=== PATIENT | male | born 1985 | race African-American/Black ===

== ENCOUNTER 2017-12-23 15:25 | Emergency (ER) | payer MEDICARE, MEDICAID ==
[2017-12-23] MEDS ORDERED: OXYCODONE-ACETAMINOPHEN 5-325 MG TABLET PO ONE (16:31)
[2017-12-23] MEDS ORDERED: CEFTRIAXONE INJ 1000 MG VIAL IM ONE (17:03)
--- NOTE | 2017-12-23 17:12 | RADIOLOGY REPORT (SQ) ---
EXAM DESCRIPTION: FOOT LEFT COMPLETE COMPLETED DATE/TIME: 12/23/2017 4:54 pm REASON FOR STUDY: open wound, chronic callus, ? osteo COMPARISON: None. NUMBER OF VIEWS: Three views. TECHNIQUE: AP, lateral and oblique radiographic images acquired of the left foot. LIMITATIONS: None. FINDINGS: MINERALIZATION: Normal. BONES: No acute fracture or dislocation. No aggressive bony demineralization or periosteal new bone at the base of the 5th metatarsal worrisome for osteomyelitis JOINTS: No effusions. SOFT TISSUES: Plantar soft tissue ulcer along the base 5th left metatarsal. No radiopaque foreign ellen dy. OTHER: No other significant finding. IMPRESSION: Plantar ulcer next of the base 5th metatarsal without underlying bony abnormalities to s uggest active osteomyelitis TECHNICAL DOCUMENTATION: JOB ID: [id number] [employer]- All Rights Reserved Reading location - IP/workstation name: [email or web address]
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
[2017-12-23 17:28] LABS: APPEARANCE,URINE CLEAR; BILIRUBIN,URINE NEGATIVE (NEGATIVE); COLOR,URINE YELLOW; GLUCOSE, URINE NEGATIVE (NEGATIVE); KETONES,URINE NEGATIVE (NEGATIVE); LEUKOCYTE ESTERASE,URINE TRACE (NEGATIVE); NITRITE,URINE NEGATIVE (NEGATIVE); PROTEIN,URINE NEGATIVE (NEGATIVE); URINE SPECIFIC GRAVITY 1.026
[2017-12-23 17:37] LABS: ABSOLUTE EOSINOPHILS # (AUTO) 0.3 10^3/uL (0.0-0.6); ABSOLUTE LYMPHOCYTES (AUTO) 2.2 10^3/uL (0.5-4.7); ABSOLUTE MONOCYTES (AUTO) 0.8 10^3/uL (0.1-1.4); ABSOLUTE NEUT (AUTO) 7.2 10^3/uL (1.7-8.2); BASOPHILS % (AUTO) 0.4 % (0-2); EOSINOPHILS % (AUTO) 2.6 % (0-6); HEMOGLOBIN 14.2 g/dL (13.5-17.0); LYMPHOCYTES % (AUTO) 21.1 % (13-45); MEAN CORPUSCULAR HEMOGLOBIN 27.7 pg (27.0-33.4); MEAN CORPUSCULAR HGB CONC 33.1 g/dL (32.0-36.0); MEAN CORPUSCULAR VOLUME 84 fl (80-97); MONOCYTES % (AUTO) 7.5 % (3-13); PLATELET COUNT 245 10^3/uL (150-450); RED BLOOD COUNT 5.13 10^6/uL (4.35-5.55); RED CELL DISTRIBUTION WIDTH 13.8 % (11.5-14.0); SEGMENTED NEUTROPHILS % (AUTO) 68.4 % (42-78); TOTAL CELLS COUNTED % (AUTO) 100 %; WHITE BLOOD COUNT 10.5 10^3/uL (4.0-10.5)
[2017-12-23 17:59] LABS: ANION GAP 11 (5-19); BLOOD UREA NITROGEN 18 mg/dL (7-20); CALCIUM 9.8 mg/dL (8.4-10.2); CARBON DIOXIDE 28 mmol/L (22-30); CHLORIDE 104 mmol/L (98-107); GLUCOSE 70 mg/dL (75-110); POTASSIUM 4.3 mmol/L (3.6-5.0); SODIUM 143.4 mmol/L (137-145)
[2017-12-23] MEDS ORDERED: CEFTRIAXONE INJ 1000 MG VIAL IV ONE (18:24)
[2017-12-23] MEDS ORDERED: AZITHROMYCIN 250 MG TABLET PO ONE (18:45)
[2017-12-23 19:29] VITALS: BP 133/84
[2017-12-23 20:06] LABS: CHLAM PCR DETECTED (NOT DETECT); GON PCR NOT DETECTED (NOT DETECT)
== END 2017-12-23 19:48 | disposition home or self-care (01) ==
LOC: ER 15:25
DX: L03.116 Cellulitis of left lower limb (principal); M54.9 Dorsalgia, unspecified; M79.604 Pain in right leg; M79.651 Pain in right thigh; F17.200 Nicotine dependence, unspecified, uncomplicated; I10 Essential (primary) hypertension
CPT/HCPCS: 99284; 96365; 36415; 87086; 87070; 87205; 85025; 87075; 87077; 80048; 81001; 87491; 87591; 73630; A9270 ×2; J0696